=== PATIENT | male | born 1980 | race African-American/Black ===

== ENCOUNTER 2024-05-29 09:34 | Inpatient (IN) | payer OTHER ==
[2024-05-29 09:49] VITALS: BMI 26.8
[2024-05-29] MEDS ORDERED: POLYETHYLENE GLYCOL (HEALTHYLAX) 3350 17 GM PACKET PO PRN (10:03)
[2024-05-29] MEDS ORDERED: BENZOCAINE/MENTHOL (CHLORASEPTIC ) LOZENGE MM PRN (10:03)
[2024-05-29] MEDS ORDERED: NALOXONE HCL 0.4 MG/ML VIAL IM PRN (10:03)
[2024-05-29] MEDS ORDERED: MAG HYDROX/AL HYDROX/SIMETH 30 ML UNIT-DOSE CUP PO PRN (10:03)
[2024-05-29] MEDS ORDERED: ONDANSETRON *ODT* 4 MG TABLET SL PRN (10:03)
[2024-05-29] MEDS ORDERED: NALOXONE (NARCAN) HCL 4 MG/0.1 ML SPRAY NS PRN (10:03)
[2024-05-29] MEDS ORDERED: IBUPROFEN 400 MG TABLET (FP) PO PRN (10:03)
[2024-05-29] MEDS ORDERED: MAGNESIUM HYDROX 2400MG/30ML ORAL SUSPENSION 30 ML CUP PO PRN (10:03)
[2024-05-29] MEDS ORDERED: BENZONATATE 200 MG CAPSULE PO PRN (10:03)
[2024-05-29] MEDS ORDERED: guaiFENesin 600 MG TABLET.ER (FP) PO PRN (10:03)
[2024-05-29] MEDS ORDERED: DICYCLOMINE HCL 10 MG CAPSULE PO PRN (10:03)
[2024-05-29] MEDS ORDERED: NICOTINE 21 MG/24 HOURS TOPICAL PATCH ONE (10:24)
[2024-05-29] MEDS ORDERED: chlordiazePOXIDE HCL 25 MG CAPSULE ONE (10:24)
[2024-05-29] MEDS ORDERED: PRENATAL VITAMINS W/ FOLIC ACID TABLET (FP) PO ONE (10:25)
[2024-05-29] MEDS: NICOTINE 21 MG/24 HOURS TOPICAL PATCH TD SCH (10:32)
[2024-05-29] MEDS: PRENATAL VITAMINS W/ FOLIC ACID TABLET (FP) PO SCH (10:32)
[2024-05-29] MEDS: chlordiazePOXIDE HCL 25 MG CAPSULE PO SCH (10:32)
[2024-05-29] MEDS: chlordiazePOXIDE HCL 25 MG CAPSULE PO PRN (14:48)
[2024-05-29] MEDS: THIAMINE 100 MG TABLET PO SCH (22:26)
[2024-05-29] MEDS: MELATONIN 5 MG TABLETS PO SCH (22:28)
[2024-05-30 12:46] LABS: HEMOGLOBIN 13.3 GM/dL (11.7-16.9); MCH 30.9 pg (25.7-33.7); MCHC 33.3 g/dl (32.0-35.9); MEAN CELL VOLUME 92.9 fl (80-96); MEAN PLT VOLUME 8.5 fl (7.5-11.1); PLATELET COUNT 156 10^3/uL (134-434); RBC 4.31 M/mm3 (4.00-5.60); WHITE BLOOD COUNT 2.9 K/mm3 (4.0-10.0)
[2024-05-30 13:22] LABS: POTASSIUM 3.3 mmol/L (3.5-5.1)
[2024-05-30 13:27] LABS: ALBUMIN 3.4 g/dl (3.4-5.0)
[2024-05-30 13:28] LABS: BLOOD UREA NITROGEN 6.7 mg/dL (7-18); CALCIUM 8.9 mg/dL (8.5-10.1)
[2024-05-30 13:31] LABS: CREATININE 0.9 mg/dL (0.55-1.3)
[2024-05-30 13:32] LABS: TOT PROT 7.6 g/dl (6.4-8.2)
[2024-05-30 13:39] LABS: BILIRUBIN,TOTAL 0.8 mg/dL (0.2-1)
[2024-05-30] MEDS: POTASSIUM CHLORIDE ORAL LIQUID 20 MEQ/15 ML PO ONE (15:29)
[2024-05-30] MEDS: POTASSIUM CHLORIDE ORAL LIQUID 20 MEQ/15 ML PO SCH (22:25)
[2024-05-31] MEDS: chlordiazePOXIDE HCL 25 MG CAPSULE PO SCH (05:34)
[2024-05-31] MEDS: LOPERAMIDE HCL 2 MG CAPSULE PO PRN (10:15)
[2024-05-31] MEDS: METHOCARBAMOL 500 MG TABLET PO PRN (10:15)
[2024-05-31] MEDS: hydrOXYzine PAMOATE 25 MG CAPSULE (FP) PO PRN (10:16)
[2024-05-31] MEDS: ACETAMINOPHEN 325 MG TABLET (FP) PO PRN (17:26)
[2024-05-31] MEDS: BISMUTH SUBSALICYLATE 524 MG/30 ML PO PRN (19:29)
[2024-06-01] MEDS ORDERED: chlordiazePOXIDE HCL 10 MG CAPSULE PO PRN
[2024-06-01] MEDS: chlordiazePOXIDE HCL 10 MG CAPSULE PO SCH (05:47)
[2024-06-01] MEDS: IBUPROFEN 600 MG TABLET (FP) PO PRN (17:02)
[2024-06-02] MEDS: chlordiazePOXIDE HCL 10 MG CAPSULE PO SCH (05:33)
[2024-06-02 11:18] LABS: POTASSIUM 3.9 mmol/L (3.5-5.1)
[2024-06-02 11:22] LABS: HEMATOCRIT 35.9 % (35.4-49); HEMOGLOBIN 11.8 GM/dL (11.7-16.9); MCHC 32.7 g/dl (32.0-35.9); MEAN CELL VOLUME 94.9 fl (80-96); MEAN PLT VOLUME 8.6 fl (7.5-11.1); PLATELET COUNT 169 10^3/uL (134-434); RBC 3.79 M/mm3 (4.00-5.60); RDW 15.2 % (11.9-15.9); WHITE BLOOD COUNT 3.4 K/mm3 (4.0-10.0)
[2024-06-02 11:28] LABS: ALBUMIN 2.9 g/dl (3.4-5.0); CALCIUM 8.9 mg/dL (8.5-10.1)
[2024-06-02 11:32] LABS: CREATININE 0.8 mg/dL (0.55-1.3)
[2024-06-02 11:33] LABS: BILIRUBIN,TOTAL 0.4 mg/dL (0.2-1); TOT PROT 6.4 g/dl (6.4-8.2)
[2024-06-02 21:04] VITALS: RESP 18
[2024-06-03] MEDS: chlordiazePOXIDE HCL 10 MG CAPSULE PO ONE (05:33)
[2024-06-03 09:23] VITALS: BP 113/70; PULSE 118; TEMP 97.6
== END 2024-06-03 10:18 | disposition home or self-care (01) | DRG 775 ==
LOC: YASAS 09:34 → Y6N 10:06
PROVIDERS: ADMIT Allergy & Immunology; ATTEND Family Medicine Addiction Medicine
PROC: HZ2ZZZZ Detoxification Services for Substance Abuse Treatment (ICD-10-PCS; principal; 2024-05-29)
DX: F10.230 Alcohol dependence with withdrawal, uncomplicated (principal); F17.210 Nicotine dependence, cigarettes, uncomplicated; E87.6 Hypokalemia; D72.829 Elevated white blood cell count, unspecified; R74.8 Abnormal levels of other serum enzymes; Z59.02 Unsheltered homelessness
CPT/HCPCS: 36415; 80053; 80305; 80307; 85027; 86780; 93005; 93010